=== PATIENT | male | born 1980 | race Two or more races ===

== ENCOUNTER → 2018-07-05 | Outpatient (CLI) | payer OTHER ==
[2016-08-13 11:16] VITALS: BMI 27.1
[~2018-07-05] MED LIST: MIR15 PO; MIRT-17 PO; MULT-1379 PO; NO MEDS; PAR20 PO; PER PO; TOP25 PO
== END ==
LOC: US 04:14
PROVIDERS: ATTEND Pediatrics Adolescent Medicine
DX: R94.31 Abnormal electrocardiogram [ECG] [EKG] (principal)
CPT/HCPCS: 93306

== ENCOUNTER 2018-10-10 10:52 | Outpatient (RCR) | payer OTHER ==
[2016-08-13 11:16] VITALS: Wt 71.3 kg
[2018-08-09 14:17] VITALS: BP 132/90
--- NOTE | 2018-08-09 19:45 | [facility] ONCOLOGY NOTE ---
EVENT DATE: August 09, 2018 REFERRING PHYSICIAN [employer] [facility] REASON FOR CONSULTATION Evaluation and management of hemochromatosis with iron overload. HEMATOLOGY HISTORY Patient is a 37-year-old male who is a student at the [employer] who had a history of hemochromatosis in his brother, and the patient was found to have high liver enzymes with a high AST at 104 and a high ALT at 187. Patient had hepatitis profile done, which came back negative, so the patient had genetic testing for hemochromatosis which came back positive for one copy of the C282Y mutation. He had iron studies done which showed serum ferritin of 269, serum iron 261, TIBC 298, and iron saturation was 88%. PAST MEDICAL HISTORY Significant for hypertension. PAST SURGICAL HISTORY Insignificant. FAMILY HISTORY Father had bladder cancer. Brother had hemochromatosis. SOCIAL HISTORY Patient is single with no children. He is a student at the [employer]. He drinks on the weekends. Denies any abuse of tobacco or illicit drugs. CURRENT MEDICATIONS 1. Amlodipine 10 mg daily. 2. Hydrochlorothiazide 25 mg daily. ALLERGIES No known drug allergies. REVIEW OF SYSTEMS CONSTITUTIONAL: No appetite or weight change. No fever, chills, or sweating. No recent infection. HEENT: Ears: No tinnitus or hearing problem. Nose: No nasal discharge or epistaxis. Throat: No sore throat or mouth ulcers. Eyes: No diplopia or visual changes. RESPIRATORY: No shortness of breath. No cough, expectoration, or hemoptysis. CARDIOVASCULAR: No chest pain, orthopnea, or paroxysmal nocturnal dyspnea (PND). No edema. No palpitations. GASTROINTESTINAL: No nausea or vomiting. No diarrhea or constipation. No change in bowel movements. No heartburn or swallowing difficulties. No abdominal pain. No jaundice. No hematemesis, melena, or rectal bleeding. GENITOURINARY: No hematuria or dysuria. MUSCULOSKELETAL: No pain in the muscles, joints, or bones. NEUROLOGICAL: No tingling or numbness in the hands or feet. No headaches or convulsions. HEMATOLOGIC/LYMPHATIC: No bleeding or easy bruising. No weakness or fatigue. No enlarged lymph nodes. SKIN: No skin rash or lumps. PSYCHIATRIC: No anxiety or depression. PHYSICAL EXAMINATION GENERAL: Looks stable. Well developed, well nourished, and in no acute distress. VITAL SIGNS: Blood pressure 132/90, pulse 83 per minute, respirations 16 per minute, temperature 99.3, pulse ox 93% on room air. HEENT: Head: Atraumatic. No sinus tenderness to palpation. Eyes: No icterus or conjunctivitis. Mouth and throat: No oral thrush or mucositis. NECK: Supple. No cervical or supraclavicular lymphadenopathy. LUNGS: Clear to auscultation and percussion bilaterally. HEART: Regular rate and rhythm. No gallops, murmurs, clicks, or rubs. ABDOMEN: Soft and lax. No tenderness. No hepatosplenomegaly. No masses. EXTREMITIES: No cyanosis, clubbing, or edema. LYMPHATICS: No peripheral lymphadenopathy. NEUROLOGICAL: Conscious, alert, and oriented times three. No focal motor or sensory deficits. PSYCHIATRIC: Mood and affect appear normal. SKIN: No skin rash, bruise, or purpuric eruption. 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 Patient had iron studies which showed a serum ferritin of 269 and iron saturation of 88%. Patient had a positive family history of hemochromatosis in his brother. I am planning to start phlebotomy sessions every 10 days until we reach serum ferritin less than 100 and/or iron saturation less than 60%. After that, we will start maintenance phlebotomy in the future. I had a long discussion with the patient regarding the complications of hemochromatosis, and the patient is aware it is a completely preventable disease by doing the phlebotomy and preventing the iron overload. I will see him in two months from now with CBC, chemistry panel, and iron studies with ferritin after we start his induction phlebotomies. PLAN 1. Check CBC, CMP, and iron studies with ferritin today. 2. Phlebotomize 500 mL of blood every 10 days if serum ferritin is above 100 and/or iron saturation above 60%. 3. CBC and iron studies with ferritin to be checked every 10 days. 4. Patient to return in two months with CBC, chem panel, and iron studies with ferritin. 5. Patient to contact us for any new concerns or complaints. QUINCY
[2018-08-16 09:08] LABS: PLATELET COUNT, AUTOMATED 279 K/uL (150-450)
[2018-08-16 09:12] VITALS: BP 127/90
[2018-08-16 10:35] VITALS: BP 130/96
[2018-08-26 08:59] VITALS: BP 140/98
[2018-08-26 09:14] LABS: PLATELET COUNT, AUTOMATED 343 K/uL (150-450)
[2018-08-26 10:51] VITALS: BP 127/98
[2018-09-06 08:58] VITALS: BP 138/91
[2018-09-06 09:08] LABS: PLATELET COUNT, AUTOMATED 283 K/uL (150-450)
[2018-09-18 08:06] VITALS: BP 126/88
[2018-09-18 08:32] LABS: PLATELET COUNT, AUTOMATED 311 K/uL (150-450)
[2018-09-18 09:27] VITALS: BP 122/88
[2018-09-27 09:46] VITALS: BP 139/92
[2018-09-27 10:06] LABS: PLATELET COUNT, AUTOMATED 312 K/uL (150-450)
[2018-10-09 10:56] VITALS: BP 126/99
[2018-10-09 11:12] LABS: PLATELET COUNT, AUTOMATED 282 K/uL (150-450)
[~2018-10-10 10:52] MED LIST changes: +AMLO-127 PO; +DEXTROSE 5%(*) 100 ML BAG 100 ML IVPB PRN; +HYDR-2966 PO; +LIDOCAINE/SOD BICARB 8.4% SYR ID PRN; +NS(*) 0.9% 100 ML BAG 100 ML IVPB PRN
[2018-10-10 10:59] VITALS: BP 139/91
--- NOTE | 2018-10-10 14:37 | [facility] ONCOLOGY NOTE ---
EVENT DATE: October 10, 2018 DIAGNOSES 1. Iron overload. 2. 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 CHIEF COMPLAINT Patient is here today for followup of his iron overload. 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 who had a history of hemochromatosis in his brother, and the patient was found to have high liver enzymes with a high AST at 104 and a high ALT at 187. Patient had hepatitis profile done, which came back negative, so the patient had genetic testing for hemochromatosis which came back positive for one copy of the C282Y mutation. He had iron studies done which showed serum ferritin of 269, serum iron 261, TIBC 298, and iron saturation was 88%. HISTORY OF PRESENT ILLNESS Patient is here today for followup of his iron overload with heterozygous state for hemochromatosis. He is doing fine currently and totally asymptomatic. After the three phlebotomies he received, he felt better and more energetic. PAST MEDICAL HISTORY Significant for hypertension. PAST SURGICAL HISTORY Insignificant. FAMILY HISTORY Father had bladder cancer. Brother had hemochromatosis. SOCIAL HISTORY Patient is single with no children. He is a student at the [employer]. He drinks on the weekends. Denies any abuse of tobacco or illicit drugs. CURRENT MEDICATIONS 1. Amlodipine 10 mg daily. 2. Hydrochlorothiazide 25 mg daily. ALLERGIES No known drug allergies. REVIEW OF SYSTEMS CONSTITUTIONAL: No appetite or weight change. No fever, chills, or sweating. No recent infection. HEENT: Ears: No tinnitus or hearing problem. Nose: No nasal discharge or epistaxis. Throat: No sore throat or mouth ulcers. Eyes: No diplopia or visual changes. RESPIRATORY: No shortness of breath. No cough, expectoration, or hemoptysis. CARDIOVASCULAR: No chest pain, orthopnea, or paroxysmal nocturnal dyspnea (PND). No edema. No palpitations. GASTROINTESTINAL: No nausea or vomiting. No diarrhea or constipation. No change in bowel movements. No heartburn or swallowing difficulties. No abdominal pain. No jaundice. No hematemesis, melena, or rectal bleeding. GENITOURINARY: No hematuria or dysuria. MUSCULOSKELETAL: No pain in the muscles, joints, or bones. NEUROLOGICAL: No tingling or numbness in the hands or feet. No headaches or convulsions. HEMATOLOGIC/LYMPHATIC: No bleeding or easy bruising. No weakness or fatigue. No enlarged lymph nodes. SKIN: No skin rash or lumps. PSYCHIATRIC: No anxiety or depression. PHYSICAL EXAMINATION GENERAL: Looks stable. Well developed, well nourished, and in no acute distress. VITAL SIGNS: Blood pressure 139/91, pulse 79 per minute, respirations 16 per minute, temperature 97.5, pulse ox 97% on room air. HEENT: Head: Atraumatic. No sinus tenderness to palpation. Eyes: No icterus or conjunctivitis. Mouth and throat: No oral thrush or mucositis. NECK: Supple. No cervical or supraclavicular lymphadenopathy. LUNGS: Clear to auscultation and percussion bilaterally. HEART: Regular rate and rhythm. No gallops, murmurs, clicks, or rubs. ABDOMEN: Soft and lax. No tenderness. No hepatosplenomegaly. No masses. EXTREMITIES: No cyanosis, clubbing, or edema. LYMPHATICS: No peripheral lymphadenopathy. NEUROLOGICAL: Conscious, alert, and oriented times three. No focal motor or sensory deficits. PSYCHIATRIC: Mood and affect appear normal. SKIN: No skin rash, bruise, or purpuric eruption. DIAGNOSTIC DATA CBC showed white count 5.5, hemoglobin 14.3, hematocrit 43.5, platelet 282,000. Chem panel totally normally except BUN 8, AST 65, ALT 109. Iron studies showed serum iron 137, TIBC 320, iron saturation 42.8% and ferritin 25. 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 His serum ferritin was 269 and iron saturation was 88% initially. Patient received three phlebotomies with improvement of his iron studies. Patient had a positive family history of hemochromatosis in his brother. His current iron studies shows iron saturation 42.8% and ferritin 25%. No indication of phlebotomy at this time. I am planning to follow up to phlebotomize 500 mL of blood if serum ferritin above 100 and/or iron saturation more than 60%. I am planning to see him in three months from now with CBC, chem panel, iron studies with ferritin at that time. PLAN 1. Continue followup. 2. Patient to return in three months with CBC, chem panel, iron studies with ferritin. 3. Consider phlebotomy if serum ferritin more than 100 and/or iron saturation more than 60%. 4. Patient to contact us for any new concerns or complaints. QUINCY
== END 2018-11-07 ==
LOC: ONC 10:52
PROVIDERS: ATTEND Internal Medicine Hematology
DX: E83.119 Hemochromatosis, unspecified (principal); I10 Essential (primary) hypertension
CPT/HCPCS: 36415; 82040; 82247; 82310; 82374; 82435; 82565; 82728; 82947; 83540; 83550; 84075; 84132; 84155; 84295; 84450; 84460; 84520; 85025; 99195; 99202; 99212

== ENCOUNTER 2019-01-09 12:57 | Outpatient (RCR) | payer OTHER ==
[2016-08-13 11:16] VITALS: BMI 27.1
[~2019-01-09 12:57] MED LIST changes: -DEXTROSE 5%(*) 100 ML BAG 100 ML IVPB PRN; -LIDOCAINE/SOD BICARB 8.4% SYR ID PRN; -NS(*) 0.9% 100 ML BAG 100 ML IVPB PRN
[2019-01-09 13:21] VITALS: BP 126/94
[2019-01-09] MEDS ORDERED: NS(*) 0.9% 100 ML BAG 100 ML IVPB PRN (13:30)
[2019-01-09] MEDS ORDERED: DEXTROSE 5%(*) 100 ML BAG 100 ML IVPB PRN (13:30)
[2019-01-09] MEDS ORDERED: LIDOCAINE/SOD BICARB 8.4% SYR ID PRN (13:30)
[2019-01-09 13:37] LABS: PLATELET COUNT, AUTOMATED 302 K/uL (150-450)
--- NOTE | 2019-01-09 23:13 | [facility] ONCOLOGY NOTE ---
EVENT DATE: January 09, 2019 DIAGNOSES 1. Iron overload. 2. 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 CHIEF COMPLAINT Patient is here today for followup of his iron overload. HEMATOLOGY HISTORY Patient is a 38-year-old male who is a student at the [employer] who has a history of hemochromatosis in his brother, and the patient was found to have high liver enzymes with a high AST at 104 and a high ALT at 187. Patient had hepatitis profile done, which came back negative, so the patient had genetic testing for hemochromatosis, which came back positive for one copy of the C282Y mutation. He had iron studies done, which showed serum ferritin of 269, serum iron 261, TIBC 298, and iron saturation was 88%. HISTORY OF PRESENT ILLNESS Patient is here today for followup of his iron overload. He is complaining of some nasal discharge. He has some pain in his right elbow, but other than that, he is doing very well and feeling good in himself. PAST MEDICAL HISTORY Significant for hypertension. PAST SURGICAL HISTORY Insignificant. FAMILY HISTORY Father had bladder cancer. Brother had hemochromatosis. SOCIAL HISTORY Patient is single with no children. He is a student at the [employer]. He drinks on the weekends. Denies any abuse of tobacco or illicit drugs. CURRENT MEDICATIONS 1. Amlodipine 10 mg daily. 2. Hydrochlorothiazide 25 mg daily. ALLERGIES No known drug allergies. REVIEW OF SYSTEMS CONSTITUTIONAL: No appetite or weight change. No fever, chills, or sweating. No recent infection. HEENT: Ears: No tinnitus or hearing problem. Nose: He has nasal discharge. No epistaxis. Throat: No sore throat or mouth ulcers. Eyes: No diplopia or visual changes. RESPIRATORY: No shortness of breath. No cough, expectoration, or hemoptysis. CARDIOVASCULAR: No chest pain, orthopnea, or paroxysmal nocturnal dyspnea (PND). No edema. No palpitations. GASTROINTESTINAL: No nausea or vomiting. No diarrhea or constipation. No change in bowel movements. No heartburn or swallowing difficulties. No abdominal pain. No jaundice. No hematemesis, melena, or rectal bleeding. GENITOURINARY: No hematuria or dysuria. MUSCULOSKELETAL: He has pain in the right elbow. NEUROLOGIC: No tingling or numbness in the hands or feet. No headaches or convulsions. HEMATOLOGIC/LYMPHATIC: No bleeding or easy bruising. No weakness or fatigue. No enlarged lymph nodes. SKIN: No skin rash or lumps. PSYCHIATRIC: No anxiety or depression. PHYSICAL EXAMINATION GENERAL: Looks stable. Well developed, well nourished, and in no acute distress. VITAL SIGNS: Blood pressure 126/94, pulse 82 per minute, respirations 16 per minute, temperature 98.6, pulse ox 95% on room air. HEENT: Head: Atraumatic. No sinus tenderness to palpation. Eyes: No icterus or conjunctivitis. Mouth and Throat: No oral thrush or mucositis. NECK: Supple. No cervical or supraclavicular lymphadenopathy. LUNGS: Clear to auscultation and percussion bilaterally. HEART: Regular rate and rhythm. No gallops, murmurs, clicks, or rubs. ABDOMEN: Soft and lax. No tenderness. No hepatosplenomegaly. No masses. EXTREMITIES: No cyanosis, clubbing, or edema. LYMPHATICS: No peripheral lymphadenopathy. NEUROLOGIC: Conscious, alert, and oriented times three. No focal motor or sensory deficits. PSYCHIATRIC: Mood and affect appear normal. SKIN: No skin rash, bruise, or purpuric eruption. DIAGNOSTIC DATA CBC showed white count 6.6, hemoglobin 14.6, hematocrit 44.8, platelets 302,000. Chem panel totally normal except sodium 135, potassium 3.3, blood sugar 140, AST 51, ALT 81, and his transaminases are improving. Serum iron 65, TIBC 316, iron saturation 20.6%, while ferritin level is still pending. 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 His serum ferritin initially was 269, and the iron saturation was 88%. Patient received three phlebotomies with improvement of his iron studies. He has a positive family history of hemochromatosis in his brother. His current iron studies show iron saturation of 20.6%, but his ferritin is still pending. If his ferritin is above 100, then I will consider doing a phlebotomy at this time. I am planning to see the patient again in four months with CBC, chemistry panel, iron studies with ferritin. I will consider phlebotomy if the ferritin is above 100 and/or iron saturation above 60%. PLAN 1. Continue followup. 2. Await result of ferritin. 3. Consider phlebotomy if ferritin above 100 and/or iron saturation above 60%. 4. Patient to return in four months with CBC, chem panel, iron studies with ferritin. 5. Patient to contact us for any new concern or complaint. MTDD
== END 2019-01-29 12:49 | disposition home or self-care (01) ==
LOC: SPU 12:57
PROVIDERS: ATTEND Internal Medicine Hematology
DX: E83.119 Hemochromatosis, unspecified (principal)
CPT/HCPCS: 82040; 82247; 82310; 82374; 82435; 82565; 82728; 82947; 83540; 83550; 84075; 84132; 84155; 84295; 84450; 84460; 84520; 85025; 99212